=== PATIENT | female | born 1995 | race Caucasian/White ===

== ENCOUNTER 2018-07-13 22:37 | Emergency (ER) | payer MEDICAID ==
[~2018-07-13] VITALS: Ht 157.5 cm; Wt 69.0 kg
[2018-07-13 22:43] VITALS: BP 100/61; Ht 157.5 cm; Wt 69.0 kg
== END 2018-07-14 00:17 | disposition left against medical advice (07) ==
LOC: ED 22:37
DX: O26.893 Other specified pregnancy related conditions, third trimester (principal); Z3A.32 32 weeks gestation of pregnancy

== ENCOUNTER 2020-04-12 11:11 | Emergency (ER) | payer MEDICAID ==
[~2020-04-12] VITALS: Ht 157.5 cm; Wt 73.9 kg
[2020-04-12 11:25] VITALS: Ht 157.5 cm; Wt 73.9 kg
[2020-04-12 13:24] VITALS: BP 122/72
== END 2020-04-12 13:24 | disposition home or self-care (01) ==
LOC: ED 11:11
DX: B37.3 Candidiasis of vulva and vagina (principal)